=== PATIENT | female | born 2005 | race African-American/Black ===

== ENCOUNTER 2024-11-06 03:20 | Inpatient (IN) | payer OTHER ==
[2024-11-06 03:53] VITALS: BMI 27.1
[2024-11-06] MEDS: Methylergonovine 0.2 MG/ML VIAL ONE ×2 (04:09→08:36)
[2024-11-06] MEDS: Lidocaine 1% (PF) 30 ML VIAL ONE (04:09)
[2024-11-06] MEDS: Tranexamic Acid 1,000 MG/10 ML VIAL ONE (04:13)
[2024-11-06] MEDS ORDERED: hydrALAZINE 20 MG/ML VIAL SLOW IVP PRN ×2 (04:25)
[2024-11-06] MEDS ORDERED: Milk Of Magnesia 30 ML UDCUP PO PRN (04:25)
[2024-11-06] MEDS ORDERED: Bisacodyl 10 MG SUPP PR PRN (04:25)
[2024-11-06] MEDS ORDERED: Promethazine HCl 25 MG/ML VIAL IM PRN ×2 (04:25→04:30)
[2024-11-06] MEDS ORDERED: Boostrix 0.5 ML (Tdap) VIAL (>/=7 yrs of age) IM ONE (04:25)
[2024-11-06] MEDS ORDERED: Ondansetron PF 4 MG/2 ML Vial IVP PRN ×2 (04:25→04:30)
[2024-11-06] MEDS ORDERED: Lidocaine 1% (PF) 30 ML VIAL SC PRN (04:25)
[2024-11-06] MEDS ORDERED: Methylergonovine 0.2 MG/ML VIAL IM PRN ×2 (04:30)
[2024-11-06] MEDS ORDERED: fentaNYL 50 mcg/mL 1 mL Vial SLOW IVP PRN (04:30)
[2024-11-06] MEDS ORDERED: Lactated Ringer's 1,000 ML IV SCH (04:30)
[2024-11-06] MEDS ORDERED: Diphenoxylate HCl/Atropine Tablet PO PRN ×2 (04:30)
[2024-11-06] MEDS ORDERED: Oxytocin 30 units/NS 500 ML 500 ML IV SCH ×3 (04:30)
[2024-11-06] MEDS ORDERED: Misoprostol 200 MCG TAB PR PRN (04:30)
[2024-11-06] MEDS ORDERED: Docusate 100 MG CAP PO PRN (04:30)
[2024-11-06] MEDS ORDERED: Benzocaine-Menthol 82.5 ML CAN TOP PRN (04:30)
[2024-11-06] MEDS ORDERED: Carboprost 250 MCG/ML AMP IM PRN (04:30)
[2024-11-06] MEDS ORDERED: Tranexamic Acid 1,000 MG/10 ML VIAL IVP PRN (04:30)
[2024-11-06] MEDS ORDERED: Acetaminophen 500 MG TAB PO PRN (04:30)
[2024-11-06] MEDS ORDERED: Preparation H Ointment 28 GM TUBE PR PRN (04:30)
[2024-11-06] MEDS ORDERED: diphenhydrAMINE 25 MG CAP PO PRN (04:30)
[2024-11-06] MEDS ORDERED: Lanolin Ointment 7 GM TUBE TOP PRN (04:30)
[2024-11-06] MEDS ORDERED: Ibuprofen 800 MG TAB PO PRN (04:30)
[2024-11-06 04:47] LABS: Hematocrit 40.9 % (34.9-44.5); Hemoglobin 13.9 g/dL (12.0-15.5); Mean Corpuscular Hemoglobin 30.3 pg (27.0-33.0); Mean Corpuscular Volume 89.3 fL (81.6-98.3); Platelet Count 195 10x3/uL (150-450); RBC Distribution Width 13.2 % (11.5-14.5); Red Blood Cell (RBC) Count 4.58 10x6/uL (3.90-5.03); White Blood Cell (WBC) Count 14.44 10x3/uL (3.5-10.5)
[2024-11-06 05:19] LABS: Syphilis Antibody Nonreactive (Nonreactive); Syphilis Antibody Index 0.08 S/CO (<1.00 Non-Reactive)
[2024-11-06 05:20] LABS: HIV (1/2) Antibody/Antigen Non-Reactive (NonReactive)
[2024-11-06 06:01] LABS: Amphetamine Not Detected (NotDetected); Barbiturates Screen Not Detected (NotDetected); Benzodiazepine Screen Not Detected (NotDetected); Cocaine Metabolite Screen Not Detected (NotDetected); Methadone Not Detected (NotDetected); Methamphetamine Not Detected (NotDetected); Opiate Screen Not Detected (NotDetected); Oxycodone Screen Not Detected (NotDetected); Phencyclidine (PCP) Not Detected (NotDetected); THC/Cannabinoid Screen Not Detected (NotDetected); Tricyclic Screen Not Detected (NotDetected)
[2024-11-06 06:11] LABS: HBsAg Index 0.17 S/CO (0-0.99); Hep B Surf Ag - L&D Non-Reactive S/CO (NonReactive)
[2024-11-06] MEDS: Ferrous Sulfate 325 MG TAB PO SCH (08:19)
[2024-11-06] MEDS: Prenatal Vitamin 1 TAB PO SCH (08:19)
[2024-11-06] MEDS: Docusate 100 MG CAP PO SCH (08:19)
[2024-11-06] MEDS: Ibuprofen 800 MG TAB PO SCH (08:19)
[2024-11-06] MEDS: Carboprost 250 MCG/ML AMP ONE (08:36)
[2024-11-06] MEDS: Misoprostol 100 MCG TAB VAG SCH (08:36)
[2024-11-06] MEDS: Misoprostol 200 MCG TAB ONE (08:36)
[2024-11-06] MEDS: Oxytocin 30 units/NS 500 ML 500 ML ONE ×2 (08:36)
[2024-11-07 03:38] VITALS: TEMP 98.3
[2024-11-07 15:46] VITALS: BP 105/65
== END 2024-11-07 14:00 | disposition home or self-care (01) | DRG 807 ==
LOC: CSHLD/OP 03:20 → CSHLD 04:09 → CSHPP 06:35
PROVIDERS: ADMIT Family Medicine; ATTEND Family Medicine
PROC: 10E0XZZ Delivery of Products of Conception, External Approach (ICD-10-PCS; principal; 2024-11-06)
PROC: 0KQM0ZZ Repair Perineum Muscle, Open Approach (ICD-10-PCS; 2024-11-06)
DX: O42.02 Full-term premature rupture of membranes, onset of labor within 24 hours of rupture (principal); Z37.0 Single live birth; Z3A.38 38 weeks gestation of pregnancy; O70.1 Second degree perineal laceration during delivery; Z79.899 Other long term (current) drug therapy; Z79.82 Long term (current) use of aspirin
CPT/HCPCS: 36415; 80306; 85027; 86780; 86850; 86900; 86901; 87340; 87389; 99285; J2210; J2590